=== PATIENT | female | born 1980 | race Caucasian/White ===

== ENCOUNTER 2020-02-21 13:00 | Emergency (ER) | payer OTHER ==
[2020-02-21] MEDS ORDERED: ONDANSETRON 4 MG/2 ML VIAL IVPUSH ONE (13:17)
[2020-02-21 13:21] VITALS: TEMP 97.1; BMI 29.7
[2020-02-21] MEDS ORDERED: ONDANSETRON 4 MG/2 ML VIAL ONE (13:22)
[2020-02-21] MEDS ORDERED: MECLIZINE HCL 25 MG TABLET (FP) PO ONE (14:04)
[2020-02-21] MEDS ORDERED: MECLIZINE HCL 25 MG TABLET (FP) ONE (14:09)
[2020-02-21] MEDS ORDERED: SODIUM CHLORIDE 0.9% 500 ML INFUS.BAG IV ONE (14:36)
[2020-02-21] MEDS ORDERED: diazePAM 5 MG TABLET PO ONE (14:36)
[2020-02-21] MEDS ORDERED: diazePAM 5 MG TABLET ONE (14:44)
[2020-02-21] MEDS ORDERED: HALOPERIDOL LACTATE 5 MG/ML IM ONE (14:57)
[2020-02-21] MEDS ORDERED: HALOPERIDOL LACTATE 5 MG/ML ONE (14:58)
[2020-02-21 18:24] VITALS: BP 123/64; PULSE 84
== END 2020-02-21 18:20 | disposition home or self-care (01) ==
LOC: FER 13:00
PROC: 3E033NZ Introduction of Analgesics, Hypnotics, Sedatives into Peripheral Vein, Percutaneous Approach (ICD-10-PCS; principal; 2020-02-21)
PROC: 3E033GC Introduction of Other Therapeutic Substance into Peripheral Vein, Percutaneous Approach (ICD-10-PCS; 2020-02-21)
DX: H81.4 Vertigo of central origin (principal); R11.2 Nausea with vomiting, unspecified
CPT/HCPCS: 93005; 99284-25